=== PATIENT | female | born 1965 | race Caucasian/White ===

== ENCOUNTER 2019-08-12 08:50 | Day surgery (SDC) | payer OTHER ==
[~2019-08-12] VITALS: Ht 162.6 cm; Wt 106.6 kg
[~2019-08-12 08:50] MED LIST: ATENOLOL25 MG PO; CURCUMIN1 GM MISC; HAIR SKIN NAIL1 EACH PO; LEVOTHYROXINE88 MCG PO; LORATADINE10 MG PO; NORETHINDRONE AC5 MG PO; PROBIOTIC1 EAC2 PO; SIMVASTATIN40 MG PO; VENLAFAXINE HCL75 MG PO; VITAMIN D325 MCG PO; VITAMIN E400 UNI5 PO; WOMEN'S 50 PLU1 EACH PO
--- NOTE | 2019-08-13 09:48 | OR ---
[facility] [address] [place] [id number] Signed DATE OF OPERATION: 08/12/2019 SURGEON: Edson Jama MD PREOPERATIVE DIAGNOSIS: Heavy menstrual bleeding. POSTOPERATIVE DIAGNOSES: Heavy menstrual bleeding and endometrial polyp. PROCEDURE: Hysteroscopy with D and C and polypectomy. ANESTHESIA: General. ESTIMATED BLOOD LOSS: 10 mL. SPECIMENS: Endometrial sample with endometrial polyp. DRAINS: None. PACKING: None. FINDINGS: Normal vagina and normal cervix. Normal size and shaped uterus with normal appearing but slightly fluffy endometrium in the lower segment and atrophic-appearing endometrium in the fundus but with approximately 1 cm polyp arising from the left anterior fundus. Both ostia appeared normal. There were no other fibroids, masses or lesions seen. COMPLICATIONS: None. DESCRIPTION OF PROCEDURE: The patient was brought to the operating room and placed in supine position. After adequate general anesthesia was obtained, she was placed in dorsal lithotomy position, Electronically Signed By: EDSON JAMA MD 08/13/19 0948 PATIENT NAME: DINORAH WHEELER OPERATIVE REPORT DATE OF : 67 REPORT #: [id number] PHYSICIAN: EDSON JAMA MD PCP: ALICIA RICHARDSON REPORT IS CONFIDENTIAL AND NOT TO BE RELEASED WITHOUT AUTHORIZATION [address] [address] Signed prepped and draped in usual sterile fashion. Bimanual exam was done to observe the size and direction of the uterus. A weighted speculum was placed in the vagina and anterior lip of the cervix grasped with an Allis clamp. Uterine cavity was then partially dilated with Occitan dilators. The hysteroscope was then placed in the endocervical canal, entered the uterine cavity under direct visualization. Sterile saline was used as distending medium. The above findings were noted. The MyoSure Lite was then placed through the hysteroscope with pressure set at 80 and then the polyp easily removed. A sample of the rather atrophic endometrium in the fundus was obtained and then more of the lower uterine segment slightly thicker endometrium was obtained in 360 degree fashion. At this point, good hemostasis was noted. No other lesions or masses were seen, so the hysteroscope was removed. Good hemostasis was noted. All instruments were then removed from vagina. The Aquilex fluid containment system was noted to show 135 mL of fluid loss. The patient tolerated the procedure well, went to recovery room in good condition. The sponge and instrument count correct at the end of procedure. The uterine curettings with polyp were sent to Pathology for identification. MD ROSS Hearn/CAMILO /[id number] cc: Alicia Davenport Copies: ~ Electronically Signed By: EDSON JAMA MD 08/13/19 0948 PATIENT NAME: DINORAH WHEELER OPERATIVE REPORT DATE OF : 67 REPORT #: [id number] PHYSICIAN: EDSON JAMA MD PCP: ALICIA RICHARDSON REPORT IS CONFIDENTIAL AND NOT TO BE RELEASED WITHOUT AUTHORIZATION
--- NOTE | 2019-08-16 16:20 | PATH ---
[facility] [address] [place], [place] [address] Signed SPECIMEN(S): A ENDOMETRIAL CURETTINGS AND POLYP SPECIMEN SOURCE: A. ENDOMETRIAL CURETTINGS AND POLYP CLINICAL HISTORY: Heavy menstrual bleeding. Hysteroscopy, D and C. FINAL PATHOLOGIC DIAGNOSIS: Uterus, endometrium, curettage: - Endometrial polyp. - Background of weakly proliferative endometrium. - Negative for hyperplasia, atypia and malignancy. JONNAA:beena:C2NR MICROSCOPIC EXAMINATION: Histologic sections of all submitted blocks are examined by light microscopy. These findings, together with the gross examination, support the pathologic diagnosis. GROSS DESCRIPTION: The specimen, labeled "KE, endometrial curettings and polyp," is received in formalin and consists of a 3.0 x 2.5 x 0.4 cm aggregate of bruno tissue fragments. Specimen is entirely submitted in cassette (A1). AM (under the direct supervision of a pathologist) The Gross Description was prepared using a voice recognition system. The report was reviewed for accuracy; however, sound-alike word errors, addition and/or deletions may occur. If there is any question about this report, please contact Client Services. PERFORMING LABORATORY: The technical component was performed by [facility], [address] [place] [id number] ([place] Associate: Beatrice Miller MD; CLIA# [id number]). [facility] [address] [address] ([place] Associate: Govind Dinero MD; CLIA# [id number]). Diagnostician: Govind Dinero MD Pathologist PATIENT NAME: DINORAH WHEELER PATHOLOGY DATE OF : 67 REPORT #: [id number] PHYSICIAN: EMIR PATHOLOGY PCP: ALICIA RICHARDSON REPORT IS CONFIDENTIAL AND NOT TO BE RELEASED WITHOUT AUTHORIZATION [address] [place] [address] Signed Electronically Signed 08/16/2019 Copies: ~ PATIENT NAME: DINORAH WHEELER PATHOLOGY DATE OF : 67 REPORT #: [id number] PHYSICIAN: [facility] PATHOLOG[facility] PCP: ALICIA RICHARDSON REPORT IS CONFIDENTIAL AND NOT TO BE RELEASED WITHOUT AUTHORIZATION
== END 2019-08-12 15:10 | disposition home or self-care (01) ==
LOC: DS 08:50 → OPS 08:50 → DS 09:45 → OPS 09:45
PROVIDERS: General Practice
PROC: 0UB98ZZ Excision of Uterus, Via Natural or Artificial Opening Endoscopic (ICD-10-PCS; principal; 2019-08-12 11:30)
DX: N84.0 Polyp of corpus uteri (principal); E03.9 Hypothyroidism, unspecified; E78.00 Pure hypercholesterolemia, unspecified; F42.9 Obsessive-compulsive disorder, unspecified; E66.01 Morbid (severe) obesity due to excess calories; G89.29 Other chronic pain; K21.9 Gastro-esophageal reflux disease without esophagitis; R32 Unspecified urinary incontinence; R35.0 Frequency of micturition; Z98.890 Other specified postprocedural states; Z68.41 Body mass index [BMI] 40.0-44.9, adult; Z79.899 Other long term (current) drug therapy; Z88.5 Allergy status to narcotic agent
CPT/HCPCS: 00952; J1100; J1885; J2250; J2405; J2704; J2765; J3010; J7121

== ENCOUNTER 2020-10-19 06:25 | Day surgery (SDC) | payer OTHER ==
[~2020-10-19] VITALS: Ht 162.6 cm; Wt 96.3 kg
--- NOTE | ~2020-10-19 | OR ---
[facility] [address] [place], [place] [address] Draft DATE OF OPERATION: 10/19/2020 SURGEON: Kyree Pereyra MD PREOPERATIVE DIAGNOSIS: Chronic left frontal sinusitis, recurring acute frontal sinusitis. POSTOPERATIVE DIAGNOSIS: Chronic left frontal sinusitis, recurring acute frontal sinusitis. PROCEDURE: Endoscopic frontal sinusotomy, left side [id number]. 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 There is an intervening sagittal segment of bone inadequately removed from last time with narrowing of the larger of the two frontal sinuses on the left side with recurring infection. So, the patient is getting three and four and five infections per year for couple years. The CT scan showed the obvious problem and the revision was necessary to stop this. DESCRIPTION OF PROCEDURE: The patient was placed in the supine position, had an orotracheal intubation, was placed under general anesthesia. Photographs were taken endoscopically preop and postoperatively. All of the other sinuses were opened and well healed with thin mucosa sharp architecture, no crusting or polyps. However, in the left frontal recess, it was photographed where the patient have polyps blocking that area. These polyps were removed until the sagittal frontal sinus instrument could be pushed into the frontal sinus. The polyps were thoroughly removed with this instrument and that sagittal wall exposed. It was quite dense and thick. It was fractured with a curette, which then made it easier removal with the sagittal based frontal sinus grasper and as much bone as could be removed was removed. At the conclusion of the procedure, it was photographed, the patient had a very wide nice opening larger frontal sinus and could be seen easily clear to the very top of the frontal sinus with all polyps removed that would obstruct its drainage. The patient was given clindamycin systemically and some dexamethasone 8 mg and that was the end of the procedure after photographing it. The patient was awakened, extubated, and sent to the recovery room in good condition. ESTIMATED BLOOD LOSS: About 20 mL. PATIENT NAME: SUMMERDINORAH OPERATIVE REPORT DATE OF : 67 REPORT #: [id number] PHYSICIAN: KYREE PEREYRA MD PCP: CORINE CHURCH MD REPORT IS CONFIDENTIAL AND NOT TO BE RELEASED WITHOUT AUTHORIZATION [address] [address] Draft COMPLICATIONS: There were no complications. Kyree Pereyra MD [facility] /[id number] Copies: ~ PATIENT NAME: SUMMERDINORAH OPERATIVE REPORT DATE OF : 67 REPORT #: [id number] PHYSICIAN: KYREE PEREYRA MD PCP: CORINE CHURCH MD REPORT IS CONFIDENTIAL AND NOT TO BE RELEASED WITHOUT AUTHORIZATION
[~2020-10-19 06:25] MED LIST changes: +BACTRIM DS TAB1 EACH PO; +CLARITIN10 MG PO; +FLONASE ALLERG9.9 ML NAS; +IBUPROFEN200 MG PO; +IBUPROFEN800 MG PO; +LEVOTHYROXINE88 MC1 PO; +LOW DOSE ASPIRI81 MG PO; +NORCO 5-325 TA1 EACH PO; +PROBIOTIC1 EAC1 PO; +SIMVASTATIN10 MG PO; +SINGULAIR10 MG PO; +VENLAFAXINE HC100 MG PO
--- NOTE | 2020-10-19 08:40 | NUR ---
10/19/20 0840 Abril Kurtz 0867 PATIENT ARRIVES TO PACU UNRESPONSIVE TO PAIN. ORAL AIRWAY IN PLACE. RESP EVEN AND UNLABORED, MASK AT 6 LITERS.
--- NOTE | 2020-10-19 09:10 | NUR ---
PATIENT BACK IN DAY SURGERY ROOM FROM PACU. PATIENT DROWSY, BUT AWAKENS TO VOICE. FALLS BACK TO SLEEP QUICKLY. DENIES PAIN. DENIES NAUSEA. MOUSTACHE DRESSING CDI. IV SITE WNL. SCDs ON. ICE WATER PLACED AT BEDSIDE. CALL LIGHT WITHIN REACH.
--- NOTE | 2020-10-19 10:02 | NUR ---
PATIENT ASSISTED OOB AND TO BATHROOM. GAIT STEADY. VOID WITHOUT DIFFICULTY. GAIT STEADY BACK TO ROOM. PATIENT BACK IN BED. SCDs ON. VS CHECKED. BOYFRIEND AT BEDSIDE. CALL LIGHT WITHIN REACH. PATIENT TOLERATING WATER. DENIES PAIN. DENIES NAUSEA.
[2020-10-19] MEDS ORDERED: ACETAMINOPHEN-1 EAC1 PO (10:30)
--- NOTE | 2020-10-19 11:39 | NUR ---
1040: MOUSTACHE DRESSING CHANGED DUE TO SATURATION. IV DC'D PER PATIENT REQUEST. TIP INTACT. DRESSING APPLIED. PATIENT OOB AND TO BATHROOM. NOW CHANGING IN TO CLOTHES. 1050: DISCHARGE INSTRUCTIONS GIVEN TO PATIENT AND BOYFRIEND. PATIENT DISCHARGED TO HOME VIA WHEELCHAIR WITH BOYFRIEND.
--- NOTE | 2020-10-19 14:14 | NUR ---
PT ALERT, ORIENTED AND SUPPORTED BY HER S.O. ANDREY. PT MENTIONED THAT THIS WILL BE THIRD TIME FOR THIS SURGERY, SEEMS TO BE DEALING APPROPRIATELY. ALL OF HER QUESTIONS ASKED ANSWERED. PT REQUESTED PRAYER, WILL FOLLOW
== END 2020-10-19 10:50 | disposition home or self-care (01) ==
LOC: DS 06:25 → OPS 06:25 → DS 06:45 → OPS 10:50
PROVIDERS: ATTEND Otolaryngology
PROC: 09BT8ZZ Excision of Left Frontal Sinus, Via Natural or Artificial Opening Endoscopic (ICD-10-PCS; principal; 2020-10-19 06:45)
DX: J01.11 Acute recurrent frontal sinusitis (principal); J33.8 Other polyp of sinus
CPT/HCPCS: 00160; J0330; J0461; J1100; J1885; J2250; J2405; J2704; J2765; J3010; J7121